=== PATIENT | female | born 1985 ===

== ENCOUNTER 2017-09-04 15:05 | Emergency (ER) | payer OTHER ==
[~2017-09-04] VITALS: Ht 170.2 cm; Wt 86.4 kg
[2017-09-04 15:14] VITALS: BP 131/73; TEMP 99.7
[2017-09-04 16:57] VITALS: PULSE 72
== END 2017-09-04 16:58 | disposition home or self-care (01) ==
LOC: COL.ER 15:05
DX: S62.666B Nondisplaced fracture of distal phalanx of right little finger, initial encounter for open fracture (principal); Z23 Encounter for immunization; W23.0XXA Caught, crushed, jammed, or pinched between moving objects, initial encounter; Y92.009 Unspecified place in unspecified non-institutional (private) residence as the place of occurrence of the external cause